=== PATIENT | female | born 1990 | race Caucasian/White ===

== ENCOUNTER 2024-10-04 18:05 | Emergency (ER) | payer MEDICAID ==
[~2024-10-04] VITALS: Ht 162.6 cm; Wt 67.7 kg
[2024-10-04 18:06] VITALS: BP 129/80; PULSE 93; RESP 16; TEMP 98; O2SAT 98
[2024-10-04] MEDS: LORazepam 1 MG tablet PO ONE (18:22)
[2024-10-04] MEDS ORDERED: HYDR-3686 PO (18:37)
[2024-10-04] MEDS ORDERED: ALPR-624 PO (18:37)
--- NOTE | 2024-10-04 18:38 | Physician Documentation ---
History of Present Illness ~ Chief Complaint: Anxiety Stated Complaint: PANIC ATTACK Time Seen by MD: 18:10 OK to notify your PCP?: Yes Source: patient Mode of Arrival: POV Exam Limitations: no limitations HPI 34-year-old female presents with panic attack which started today on her way to work. She states that she has a history of anxiety disorder, autism and ADHD. She states that [facility] and is waiting for the next appointment to get back on her medication. She says that she used to take a bunch of medications for her anxiety but has not taken anything about the past year. She denies any HI or SI. Medication Reconciliation Allergies: Coded Allergies: [place] And Derivatives (Unverified Allergy, Severe, 10/04/24) Penicillins (Unverified Allergy, Severe, 10/04/24) Scheduled Hydroxyzine Hcl* (Atarax*), 2 TAB PO HS Scheduled PRN Alprazolam (Xanax), 1 TAB PO QDAY PRN PRN for anxiety Past Medical History Smoking Status: Current every day smoker Review of Systems All Other Systems at this time: Reviewed and Negative Physical Exam Vital Signs: RN Vital Signs have been reviewed: Yes, Temperature: 98.0, Source: Temporal, Heart Rate: 93, Respiratory Rate: 16, BP: 129/80, Pulse Oximetry: 98, Weight: 67.730 Oxygen Flow Rate: 0 Pulse Oximetry Reflects: adequate oxygenation Physical Exam General: Alert, mild distress. HEENT: No injection, moist mucous membranes. Neck: Full range of motion. Respiratory: No respiratory distress, equal chest rise and fall. Chest: No accessory muscle use. Cardiovascular: Regular rate and rhythm. Gastrointestinal: Nondistended. Extremities: Normal range of motion, no deformity. Neurologic: Oriented x4. Psychiatric: Normal mood and anxious Skin: Normal color, warm and dry. Progress Results/Orders Reviewed/noted all lab results: Yes Results/Orders Completed Orders - SHAYY TRAN Lorazepam Tablet (Ativan Tablet) (10/04/24 18:10) Medications Received in ER Medications (Trade) Dose Ordered Sig/Kar Route PRN Reason Start Time Stop Time Status Last Admin Dose Admin (Ativan tablet) 1 mg ONCE ONCE PO 10/04/24 18:10 10/04/24 18:12 DC 10/04/24 18:22 1 MG Vital Signs 10/04/24 18:06 Temp 98.0 Pulse 93 Resp 16 B/P (MAP) 129/80 Pulse Ox 98 O2 Flow Rate 0 Medical Decision Making Findings 34-year-old female presents with an active panic attack. She is requesting a refill of her hydroxyzine and an as-needed medication for anxiety. [facility] not been able to schedule appointment due to them being booked out for months. She states she used to take a lot of medications for her anxiety for which she has been discontinued for the past year. She denies any chest pain. Administered Ativan while here in the department which eased her symptoms. I sent prescription for as needed Xanax and nightly hydroxyzine to her pharmacy. Differential Dx:Considerations: Include: Anxiety, Conversion disorder, Homicidal, Panic disorder, Personality disorder, Suicidal Departure Disposition: 01 HOME / SELF CARE / HOMELESS Impression: Primary Impression: Anxiety attack Condition: Stable Discharge Instructions: Panic Attack Referrals: NO PRIMARY CARE PROVIDER (PCP) Prescriptions Alprazolam (XANAX) 0.5 Mg Tablet 1 TAB PO QDAY PRN PRN for anxiety for 30 Days, #30 TAB 0 Refills Prov: SHAYY TRAN 10/04/24 Hydroxyzine Hcl* (Atarax*) 25 Mg Tablet 2 TAB PO HS for 30 Days, #60 TAB Prov: SHAYY TRAN 10/04/24 Education Educated: Patient Educated regarding: diagnosis, treatment, prognosis, need for follow up Additional Comment Medical Screen Exam This patient recieved a medical screening examination. After reviewing the individual's medical complaints with presenting symptoms and performing an appropriate physical examination, it was determined that no immediate life- threatening emergency medical condition is present. This individual is also not a women having contractions. Signature Scribe Signature: . Attestation: Scribed for Shayy Tran by Shayy Kaplan NP . 10/04/24 23:56 SHAYY TRAN Oct 04, 2024 18:38
== END 2024-10-04 18:49 | disposition home or self-care (01) ==
LOC: ER 18:06
DX: F41.0 Panic disorder [episodic paroxysmal anxiety] (principal); F17.200 Nicotine dependence, unspecified, uncomplicated; Z88.0 Allergy status to penicillin; Z79.899 Other long term (current) drug therapy
CPT/HCPCS: 99283

== ENCOUNTER 2025-04-14 21:02 | Emergency (ER) | payer MEDICAID ==
[~2025-04-14 21:02] MED LIST: ALPR-624 PO; CLIN150C2 PO
[2025-04-14] MEDS ORDERED: famotidine/PF IV inj 40 MG in normal saline 100ml IV soln 100 ML IV STA (21:11)
--- NOTE | 2025-04-14 21:33 | Physician Documentation ---
History of Present Illness ~ Chief Complaint: Allergic Reaction Stated Complaint: ALLERGIC REACTION Time Seen by : 21:08 OK to notify your PCP?: Yes Source: patient Mode of Arrival: POV Exam Limitations: no limitations HPI This is a 35-year-old female who comes in complaining of allergic reaction. 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 She has a allergic reactions like this in the past. She states she feels like her tongue in his swelling in his difficult for her to swallow. She denies itch or rash. She denies shortness of breath at this point. Medication Reconciliation Allergies: Coded Allergies: [place] And Derivatives (Unverified Allergy, Severe, 04/15/25) Penicillins (Unverified Allergy, Severe, 04/15/25) clindamycin (Verified Allergy, Unknown, 04/14/25) Scheduled Clindamycin (Cleocin ), 1 CAP PO Q6H Scheduled PRN Alprazolam (Xanax), 1 TAB PO QDAY PRN PRN for anxiety Physical Exam Vital Signs: Temperature: 96.8, Source: Temporal, Heart Rate: 113, Respiratory Rate: 15, BP: 131/78, Pulse Oximetry: 100 Pulse Oximetry Reflects: adequate oxygenation General Appearance: alert, mild distress EENT Positive muffled voice. No obvious edema of the tongue. The patient tolerated her oral secretions well. Respiratory No accessory muscle use or retractions. Lungs are clear to auscultation in all [place]. 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 Progress Results/Orders Reviewed/noted all lab results: Yes Results/Orders Orders - AMARI DAMON MD Cult Throat + R/O Beta Strep (04/15/25 01:07) Completed Orders - AMARI DAMON MD Strep A Rapid (04/15/25 00:35) Medications Received in ER Medications (Trade) Dose Ordered Sig/Kar Route PRN Reason Start Time Stop Time Status Last Admin Dose Admin (Decadron 10mg/ ml inj) 10 mg ONCE STAT IV 04/14/25 21:11 04/14/25 21:14 DC 04/14/25 21:38 10 MG (Benadryl inj.) 25 mg ONCE ONCE IV 04/14/25 21:15 04/14/25 21:16 DC 04/14/25 21:39 25 MG (Adrenalin inj) 0.3 mg ONCE STAT IM 04/14/25 21:11 04/14/25 21:13 DC 04/14/25 21:43 0.3 MG (Pepcid IV inj) 20 mg ONCE ONCE IV 04/14/25 21:25 04/14/25 21:26 DC 04/14/25 21:44 20 MG Sodium Chloride 1,000 ml @ 1,000 mls/hr ONCE ONCE IV 04/14/25 22:10 04/14/25 23:09 DC 04/14/25 22:16 1,000 MLS/HR Sodium Chloride 1,000 ml @ 1,000 mls/hr ONCE ONCE IV 04/14/25 23:35 04/15/25 00:34 DC 04/15/25 00:17 1,000 MLS/HR Vital Signs 04/14/25 04/14/25 04/14/25 04/14/25 21:05 21:46 21:50 21:58 Temp 96.8 96.8 96.8 Pulse 113 89 77 Resp 15 18 18 18 B/P (MAP) 131/78 101/75 (84) 90/55 (67) Pulse Ox 100 98 98 04/15/25 00:18 Pulse 69 Resp 15 B/P (MAP) 98/55 (69) Pulse Ox 99 Laboratory Tests Test 04/15/25 00:40 Group A Streptococcus Rapid Negative Medical Decision Making Additional information obtaine: other Findings In his she when the patient came in. Tongue was edematous and she was has a difficult time swallowing. I immediately had the nursing staff give 0.3 mg epinephrine IM to the anterior lateral thigh. After which an IV was established she was given Decadron 10 mg, diphenhydramine 25 mg daily and famotidine 20 mg. After which I re-evaluated the patient he says he is feeling better and her hot potato voice was not improving. However the patient's blood pressure began to drop so she has received 1 L bolus of normal saline however she was still somewhat hypotensive though she said she felt well her blood pressure was still low so I gave her a 2 L of normal saline. At this point I am going off duty and will endorsed the patient over to Dr. Amari Damon Rapid strep negative and no need for additional antibiotic. Monitored in the emergency room with no return of symptoms. She has EpiPen in hand and that has not need another prescription. ER precautions discussed Differential Dx:Considerations: Include: Anaphylaxis, Angioedema Differential Diagnosis Anaphylaxis. Angioedema. Allergic reaction Departure Disposition: HOME / SELF CARE / HOMELESS Impression: Primary Impression: Acute allergic reaction Condition: Improved Discharge Instructions: Anaphylactic Reaction, Adult, [id number] Referrals: NO PRIMARY CARE PROVIDER (PCP) Critical Care Note Total Time (mins): 30 Critical Care Note The very real possibility of a deterioration of this patient's condition required the highest level of my preparedness for sudden, emergent intervention. I provided critical care services, which included medication orders, frequent reevaluations of the patient's condition and response to treatment, ordering and reviewing test results, and discussing the case with various consultants. Excludes time spent performing separately billable procedures. The critical care time associated with the care of the patient was 30 minutes not counting procedures Signature Scribe Signature: No scribe Attestation: The note accurately reflects work and decisions made by me.Maurice RODRÍGUEZ 04/15/25 00:33 MAURICE GOLD Apr 14, 2025 21:32 AMARI DAMON MD Apr 15, 2025 01:24
[2025-04-14] MEDS: dexamethasone sod phosphate 10mg/ml inj IV STA (21:38)
[2025-04-14] MEDS: famotidine/PF 10 mg/ml inj IV ONE (21:44)
[2025-04-14 21:58] VITALS: TEMP 96.8
[2025-04-14] MEDS: normal saline 1000ml 1,000 ML IV ONE (22:16)
[2025-04-15] MEDS: normal saline 1000ml 1,000 ML IV ONE (00:17)
[2025-04-15 01:07] LABS: STREP A SCREEN NEGATIVE (Neg)
[2025-04-15 01:40] VITALS: BP 100/65; PULSE 82; RESP 15; O2SAT 98
[2025-04-25] MEDS ORDERED: AZIT250T83 PO (23:19)
== END 2025-04-15 01:44 | disposition home or self-care (01) ==
LOC: ER 21:03
DX: T78.49XA Other allergy, initial encounter (principal); Z88.0 Allergy status to penicillin; Z88.1 Allergy status to other antibiotic agents; Y92.89 Other specified places as the place of occurrence of the external cause
CPT/HCPCS: 87081; 87880; 96361; 96372; 96374; 96375; 99291; J0169; J1100; J1200; J3490; J7030